=== PATIENT | male | born 2000 | race African-American/Black ===

== ENCOUNTER 2019-04-24 10:47 | Emergency (ER) | payer OTHER ==
[~2019-04-24] VITALS: Ht 175.3 cm; Wt 88.6 kg
[2019-04-24 13:13] LABS: BASO % 0.6 % (0.0-1.0); EOS # 0.1 10^3/uL (0.0-0.50); EOS % 1.4 % (0.0-3.0); HEMOGLOBIN 13.8 g/dl (13.5-17.5); LYMPH # 1.3 10^3/uL (1.5-6.5); LYMPH % 21.4 % (24.0-44.0); MEAN CORPUSCULAR HEMOGLOBIN 29.9 pg (27.0-33.0); MEAN CORPUSCULAR HGB CONC 34.5 g/dl (32.0-36.5); MEAN CORPUSCULAR VOLUME 86.6 fl (80.0-96.0); MONO # 0.6 10^3/uL (0.0-0.8); MONO % 8.8 % (0.0-5.0); NEUTROPHILS # 4.2 10^3/uL (1.8-7.7); NEUTROPHILS % 67.6 % (36.0-66.0); PLATELET COUNT, AUTOMATED 208 10^3/uL (150-450); RED BLOOD COUNT 4.62 10^6/uL (4.30-6.10); WHITE BLOOD COUNT 6.2 10^3/uL (4.0-10.0)
[2019-04-24 13:30] LABS: BLOOD UREA NITROGEN 17 MG/DL (7-18); CALCIUM LEVEL 9.4 MG/DL (8.5-10.1); CARBON DIOXIDE LEVEL 30 MEQ/L (21-32); CHLORIDE LEVEL 107 MEQ/L (98-107); CREATININE FOR GFR 1.21 MG/DL (0.70-1.30); GLUCOSE, FASTING 92 MG/DL (70-100); POTASSIUM SERUM 4.2 MEQ/L (3.5-5.1); SODIUM LEVEL 141 MEQ/L (136-145)
[2019-04-24 16:24] VITALS: BP 118/57
[2019-04-24] MEDS ORDERED: PROC1CRE TOP (16:53)
== END 2019-04-24 17:00 | disposition home or self-care (01) ==
LOC: M ED 10:47
DX: K64.4 Residual hemorrhoidal skin tags (principal); Z72.0 Tobacco use

== ENCOUNTER 2019-05-30 10:32 | Emergency (ER) | payer OTHER ==
[~2019-05-30] VITALS: Ht 175.3 cm; Wt 88.6 kg
[~2019-05-30 10:32] MED LIST: PROC1CRE TOP
--- NOTE | 2019-05-30 12:29 | REP ---
CT HEAD WITHOUT CONTRAST: HISTORY: Injury. There is no intraparenchymal hemorrhage, mass or midline shift. The ventricular system is normal in appearance. There is no extracerebral collection. There is no fracture. The visualized sinuses are clear. IMPRESSION: There is no intracranial lesion. Electronically Signed by Chemo Tracey MD 05/30/2019 12:33 P
[2019-05-30 12:34] VITALS: BP 143/84
== END 2019-05-30 12:49 | disposition home or self-care (01) ==
LOC: M ED 10:32
DX: S06.0X0A Concussion without loss of consciousness, initial encounter (principal); W19.XXXA Unspecified fall, initial encounter; Y92.138 Other place on military base as the place of occurrence of the external cause; Y93.61 Activity, american tackle football; Z87.828 Personal history of other (healed) physical injury and trauma

== ENCOUNTER 2019-07-23 11:00 | Emergency (ER) | payer OTHER ==
[~2019-07-23] VITALS: Ht 175.3 cm; Wt 94.9 kg
[2019-07-23] MEDS ORDERED: CYCLOBENZAPRINE 10 MG TAB PO ONE (12:15)
[2019-07-23] MEDS ORDERED: KETOROLAC 60 MG/2 ML VIAL (J1885) IM ONE (12:15)
[2019-07-23] MEDS ORDERED: ACETAMINOPHEN 325 MG TAB PO ONE (12:15)
[2019-07-23] MEDS ORDERED: LIDOCAINE 5% (LIDODERM) PATCH TD ONE (13:30)
[2019-07-23] MEDS ORDERED: LIDO5DIS41 TD (14:25)
[2019-07-23] MEDS ORDERED: KETO10TAB PO (14:25)
[2019-07-23] MEDS ORDERED: CYCL10TA PO (14:25)
[2019-07-23 14:27] VITALS: BP 143/65
[2019-07-23] MEDS ORDERED: **NOTE PATIENT COMMENT** MISC XX SCH (21:00)
== END 2019-07-23 14:42 | disposition home or self-care (01) ==
LOC: M ED 11:00
DX: S39.012A Strain of muscle, fascia and tendon of lower back, initial encounter (principal); M62.830 Muscle spasm of back; X50.9XXA Other and unspecified overexertion or strenuous movements or postures, initial encounter; Y92.139 Unspecified place military base as the place of occurrence of the external cause; Y93.A6 Activity, grass drills; Y99.1 Military activity
CPT/HCPCS: 96372; 99283; J1885

== ENCOUNTER 2020-12-28 09:12 | Emergency (ER) | payer OTHER ==
[~2020-12-28] VITALS: Ht 175.3 cm; Wt 97.7 kg
[~2020-12-28 09:12] MED LIST changes: +CYCL-707 PO; +KETO10TAB PO; +LIDO5DIS41 TD
[2020-12-28] MEDS ORDERED: BACIOIN5 OP (09:58)
[2020-12-28 10:15] VITALS: BP 146/70
== END 2020-12-28 10:09 | disposition home or self-care (01) ==
LOC: M ED 09:12
DX: S61.213A Laceration without foreign body of left middle finger without damage to nail, initial encounter (principal); W26.0XXA Contact with knife, initial encounter; Y92.9 Unspecified place or not applicable; Y93.9 Activity, unspecified; Y99.9 Unspecified external cause status

== ENCOUNTER 2021-02-24 13:18 | Emergency (ER) | payer OTHER ==
[~2021-02-24] VITALS: Ht 175.3 cm; Wt 95.2 kg
[2021-02-24 13:18] VITALS: BP 117/69
[~2021-02-24 13:18] MED LIST changes: +BACIOIN5 OP
== END 2021-02-24 14:55 | disposition left against medical advice (07) ==
LOC: M ED 13:18
DX: Z53.21 Procedure and treatment not carried out due to patient leaving prior to being seen by health care provider (principal)

== ENCOUNTER 2021-02-25 04:01 | Emergency (ER) | payer OTHER ==
[~2021-02-25] VITALS: Ht 175.3 cm; Wt 79.9 kg
[2021-02-25 04:02] VITALS: BP 126/57
[2021-02-25] MEDS ORDERED: IBUPROFEN 400MG TAB PO ONE (07:00)
[2021-02-25] MEDS ORDERED: ACETAMINOPHEN 500 MG TAB PO ONE (07:00)
[2021-02-25] MEDS ORDERED: ONDANSETRON 4 MG ORAL DISINTEGRATING TAB PO ONE (07:00)
--- NOTE | 2021-02-25 07:48 | REP ---
INDICATION: cough. COMPARISON: No comparison study. TECHNIQUE: Two views.. FINDINGS: The lungs are well inflated and free of infiltrate. The pleural angles are sharp. The heart size is normal. Pulmonary vasculature is not increased. No significant bony abnormality is seen. IMPRESSION: Negative chest x-ray. <Electronically signed by Jass Llanes > 02/25/21 [id number]
== END 2021-02-25 09:53 | disposition home or self-care (01) ==
LOC: M ED 04:01
DX: R50.9 Fever, unspecified (principal); J06.9 Acute upper respiratory infection, unspecified
CPT/HCPCS: 71046; 87804; 99283; Q0162; U0003

== ENCOUNTER 2021-03-28 14:50 | Emergency (ER) | payer OTHER ==
[~2021-03-28] VITALS: Ht 175.3 cm; Wt 93.9 kg
--- NOTE | 2021-03-28 16:00 | REP ---
INDICATION: pain, trauma COMPARISON: None. TECHNIQUE: Internal rotation, external rotation, and Y view. FINDINGS: No acute fracture or dislocation. The acromioclavicular and glenohumeral joints are intact. No periarticular calcifications or degenerative changes are appreciated. Sub acromial space is normal. Subtle increased sclerosis to the glenoid may be related to the given history of prior surgery. Surrounding soft tissues are unremarkable. IMPRESSION: No acute pathology by radiographic evaluation. <Electronically signed by Nathaniel Bazzi > 03/28/21 [id number]
--- NOTE | 2021-03-28 16:01 | REP ---
INDICATION: pain, trauma COMPARISON: None. TECHNIQUE: Two views of the left clavicle. FINDINGS: The sternoclavicular and acromioclavicular joints are intact and normal. The clavicle is normal and without acute fracture or dislocation. No arthritic/degenerative changes. IMPRESSION: Normal left clavicle radiographs. <Electronically signed by Nathaniel Bazzi > 03/28/21 [id number]
[2021-03-28] MEDS ORDERED: ACETAMINOPHEN TAB 650MG DOSE (2X325MG) PO ONE (18:15)
[2021-03-28] MEDS ORDERED: NAPROXEN 250 MG TAB PO ONE (18:15)
[2021-03-28 18:34] VITALS: BP 135/78
== END 2021-03-28 18:35 | disposition home or self-care (01) ==
LOC: M ED 14:50
DX: S43.402A Unspecified sprain of left shoulder joint, initial encounter (principal); V28.0XXA Motorcycle driver injured in noncollision transport accident in nontraffic accident, initial encounter; Y92.89 Other specified places as the place of occurrence of the external cause; Y93.89 Activity, other specified; Y99.8 Other external cause status

== ENCOUNTER 2021-04-13 18:05 | Emergency (ER) | payer OTHER ==
[~2021-04-13] VITALS: Ht 175.3 cm; Wt 91.8 kg
[2021-04-13] MEDS ORDERED: ZOFR4TAB16 PO (18:12)
[2021-04-13] MEDS ORDERED: ONDANSETRON 4MG/2ML VIAL IV ONE (23:45)
[2021-04-13] MEDS ORDERED: NS 1,000 ML IV ONE (23:45)
[2021-04-14 00:23] LABS: BASO % 0.1 % (0.0-1.0); HEMATOCRIT 44.6 % (42.0-52.0); LYMPH # 0.5 10^3/uL (1.5-5.0); LYMPH % 3.8 % (24.0-44.0); MEAN CORPUSCULAR HEMOGLOBIN 28.4 pg (27.0-33.0); MEAN CORPUSCULAR HGB CONC 33.6 g/dl (32.0-36.5); MEAN CORPUSCULAR VOLUME 84.5 fl (80.0-96.0); MONO # 0.5 10^3/uL (0.0-0.8); MONO % 3.5 % (2.0-8.0); NEUTROPHILS # 12.5 10^3/uL (1.5-8.5); NEUTROPHILS % 92.2 % (36.0-66.0); PLATELET COUNT, AUTOMATED 240 10^3/uL (150-450); RED BLOOD COUNT 5.28 10^6/uL (4.30-6.10); WHITE BLOOD COUNT 13.6 10^3/uL (4.0-10.0)
[2021-04-14] MEDS ORDERED: METOCLOPRAMIDE INJ 10MG/2ML VIAL (J2765 PER 1) IV ONE (00:50)
[2021-04-14] MEDS ORDERED: GI COCKTAIL 50ML BTL(HYOSCYAMINE/MAALOX/LIDOCAINE VISCOUS)(1:3:1) PO ONE (00:50)
[2021-04-14] MEDS ORDERED: OMEPRAZOLE 20 MG CAP PO ONE (00:50)
[2021-04-14 00:55] LABS: ALBUMIN 4.9 GM/DL (3.2-5.2); BILIRUBIN,DIRECT 0.2 MG/DL (0.0-0.2); BILIRUBIN,TOTAL 0.7 MG/DL (0.2-1.0); TOTAL PROTEIN 8.4 GM/DL (6.4-8.2)
--- NOTE | 2021-04-14 01:14 | REPVR ---
PROCEDURE INFORMATION: Exam: XR Complete Acute Abdomen Series Including Chest Exam date and time: 04/13/2021 11:59 PM Age: 21 years old Clinical indication: Abdominal pain; Generalized; Additional info: Diffuse abd pain, nausea TECHNIQUE: Imaging protocol: XR complete acute abdomen series, including 2 or more views of the abdomen and a single view chest. COMPARISON: 1. OH Chest, 2 view PA, Lat 02/25/2021 7:25 AM 2. CR Clavicle 03/28/2021 3:36 PM 3. CR Shoulder, complete LEFT 03/28/2021 3:36 PM FINDINGS: Lungs: Unremarkable. No consolidation. No pulmonary edema. Pleural spaces: No pleural effusion. No pneumothorax. Heart/Mediastinum: Unremarkable. No cardiomegaly. Gastrointestinal tract: There is a paucity of gas in the small and large bowel. No dilated loops of bowel are identified. Intraperitoneal space: There are surgical clips in the right upper quadrant of the abdomen. Bones/joints: Unremarkable. Soft tissues: Unremarkable. IMPRESSION: 1. No acute radiographic findings in the chest, abdomen, or pelvis. 2. Paucity of gas in the small and large bowel. Electronically signed by: Tee Damon On 04/14/2021 01:14:02 AM
[2021-04-14] MEDS ORDERED: ISOVUE-370 76% 100ML VIAL As Ordered ONE (01:28)
--- NOTE | 2021-04-14 02:07 | REPVR ---
PROCEDURE INFORMATION: Exam: CT Abdomen And Pelvis With Contrast Exam date and time: 04/14/2021 1:10 AM Age: 21 years old Clinical indication: Elevated white blood cell count, nausea, and vomiting. TECHNIQUE: Imaging protocol: Computed tomography of the abdomen and pelvis with contrast. Radiation optimization: All CT scans at this facility use at least one of these dose optimization techniques: automated exposure control; mA and/or kV adjustment per patient size (includes targeted exams where dose is matched to clinical indication); or iterative reconstruction. Contrast material: ISO; Contrast volume: 100 ml; Contrast route: INTRAVENOUS (IV); COMPARISON: CR Abdomen, Flat Upright, PA CHEST 04/13/2021 11:41 PM FINDINGS: Lungs: The imaged portions of the lung bases are clear. The lungs were not fully imaged. Heart: No cardiomegaly or pericardial effusion. Diaphragm: Intact. Liver: The attenuation of the liver is more than 40 Hounsfield units lower in attenuation compared to the spleen, which is compatible with fatty liver infiltration. No liver lesion is identified. The contour of the liver is smooth. No hepatomegaly is noted. Gallbladder and bile ducts: There has been a cholecystectomy. There is no fluid collection in the gallbladder fossa. No dilation of the bile ducts is noted. No calcified stones are seen in the common bile duct. Pancreas: Normal. No dilation of the main pancreatic duct is noted. Spleen: Normal. No splenomegaly is noted. Adrenal glands: Normal. No adrenal mass is noted. Kidneys and ureters: There is a 3 mm benign-appearing cyst in the upper pole of the left kidney, for which follow-up imaging is not recommended. The kidneys otherwise normal in appearance. No stones are noted in the kidneys or ureters. There is no hydronephrosis or hydroureter. There are no wedge-shaped areas of low attenuation in the kidneys to suggest pyelonephritis. There is no renal abscess or perinephric fluid collection. Stomach and bowel: There is fluid and gas in the stomach. The small bowel is unremarkable. There is diffuse colonic wall thickening. No perforated viscus fistula, or bowel obstruction is noted. Appendix: There is intraluminal high density within the retrocecal appendix, which may represent high density ingested material or appendicoliths. The appendix is not dilated and there is no inflammatory fat stranding or fluid around the appendix to indicate appendicitis. Intraperitoneal space: No free air. No ascites. No abscess. Retroperitoneal space: No fluid collection. No mass. Vasculature: The abdominal aorta is patent, normal in caliber, and there is no dissection. The iliac arteries, common femoral arteries, renal arteries, celiac artery, superior mesenteric artery, and inferior mesenteric artery are patent. Lymph nodes: Normal. No enlarged lymph nodes. Urinary bladder: The partially distended urinary bladder is unremarkable. No stones or masses are seen in the bladder. Reproductive: The prostate gland and seminal vesicles are unremarkable. Bones/joints: There is no acute fracture or dislocation. There are degenerative changes involving the lower lumbar spine. There are bony fragments at the anterior superior corners of the L5 and S1 vertebral bodies, which represent limbus vertebra that are unfused secondary ossification centers that occur secondary to herniation of the nucleus pulposus through the vertebral body endplatex beneath the ring apophysis. Incidental note is made of a well corticated ossicle associated with the left superior articular process of S1, which may represent an ununited ossification center (Tre ossicle) or the sequela of old trauma. Soft tissues: Unremarkable. No hernia. IMPRESSION: 1. Pancolitis. No perforated viscus, fistula, abscess, or bowel obstruction. 2. Fatty liver. COMMENTS: Consistent with the [employer]'s Incidental Findings Committee white paper (J Am Ananda Radiol 2018): Any incidental renal lesion less than 1 cm or classified as too small to characterize, or any incidental cystic renal lesion characterized as simple-appearing, is likely benign. No follow-up imaging is recommended for these lesions per consensus recommendations based on imaging criteria. Electronically signed by: Tee Damon On 04/14/2021 02:07:20 AM
[2021-04-14] MEDS ORDERED: ONDA4TAB6 PO (02:12)
[2021-04-14] MEDS ORDERED: CIPR-249 PO (02:12)
[2021-04-14] MEDS ORDERED: DICY10CA13 PO (02:12)
[2021-04-14] MEDS ORDERED: CIPROFLOXACIN 500MG TABLET PO ONE (02:15)
[2021-04-14 02:30] VITALS: BP 156/88
== END 2021-04-14 02:39 | disposition home or self-care (01) ==
LOC: M ED 18:05
DX: K51.018 Ulcerative (chronic) pancolitis with other complication (principal); K76.0 Fatty (change of) liver, not elsewhere classified; R11.2 Nausea with vomiting, unspecified; F17.200 Nicotine dependence, unspecified, uncomplicated
CPT/HCPCS: 74021; 74177; 80047; 80076; 81001; 83690; 85025; 96361; 96374; 96375; 99284; J2405; J2765; Q9967

== ENCOUNTER 2021-04-15 14:21 | Emergency (ER) | payer OTHER ==
[~2021-04-15] VITALS: Ht 175.3 cm; Wt 90.9 kg
[~2021-04-15 14:21] MED LIST changes: +CIPR-249 PO; +DICY10CA13 PO; +ONDA4TAB6 PO; +ZOFR4TAB16 PO
[2021-04-15] MEDS ORDERED: METOCLOPRAMIDE INJ 10MG/2ML VIAL (J2765 PER 1) IV ONE (16:35)
[2021-04-15 16:52] LABS: BASO % 0.4 % (0.0-1.0); EOS % 0.1 % (0.0-3.0); HEMATOCRIT 46.2 % (42.0-52.0); HEMOGLOBIN 15.6 g/dl (13.5-17.5); LYMPH % 12.1 % (24.0-44.0); MEAN CORPUSCULAR HEMOGLOBIN 28.4 pg (27.0-33.0); MEAN CORPUSCULAR HGB CONC 33.8 g/dl (32.0-36.5); MEAN CORPUSCULAR VOLUME 84.2 fl (80.0-96.0); MONO # 0.6 10^3/uL (0.0-0.8); NEUTROPHILS # 6.2 10^3/uL (1.5-8.5); NEUTROPHILS % 79.9 % (36.0-66.0); PLATELET COUNT, AUTOMATED 271 10^3/uL (150-450); RED BLOOD COUNT 5.49 10^6/uL (4.30-6.10); WHITE BLOOD COUNT 7.8 10^3/uL (4.0-10.0)
[2021-04-15 17:10] LABS: ALBUMIN 4.7 GM/DL (3.2-5.2); ALT/SGPT 25 U/L (12-78); BILIRUBIN,DIRECT 0.2 MG/DL (0.0-0.2); BILIRUBIN,TOTAL 0.8 MG/DL (0.2-1.0); BLOOD UREA NITROGEN 15 MG/DL (7-18); CALCIUM LEVEL 9.6 MG/DL (8.5-10.1); CARBON DIOXIDE LEVEL 27 MEQ/L (21-32); CHLORIDE LEVEL 103 MEQ/L (98-107); CREATININE FOR GFR 1.13 MG/DL (0.70-1.30); GLOMERULAR FILTRATION RATE > 60.0 (>60); GLUCOSE, FASTING 97 MG/DL (70-100); LIPASE 88 U/L (73-393); POTASSIUM SERUM 3.8 MEQ/L (3.5-5.1); SODIUM LEVEL 136 MEQ/L (136-145); TOTAL PROTEIN 8.4 GM/DL (6.4-8.2)
[2021-04-15] MEDS ORDERED: PROMETHAZINE INJ 25 MG/ML VIAL (J2550) IV ONE (17:30)
[2021-04-15 18:28] VITALS: BP 120/81
[2021-04-15 19:06] LABS: AMPHETAMINES LEVEL URINE NEGATIVE (NEGATIVE); BARBITURATES URINE NEGATIVE (NEGATIVE); BENZODIAZEPINES URINE NEGATIVE (NEGATIVE); CANNABINOIDS URINE POSITIVE (NEGATIVE); COCAINE METABOLITE URINE NEGATIVE (NEGATIVE); METHADONE URINE NEGATIVE (NEGATIVE); OPIATES URINE NEGATIVE (NEGATIVE); PHENCYCLIDINE URINE NEGATIVE (NEGATIVE)
== END 2021-04-15 20:34 | disposition home or self-care (01) ==
LOC: M ED 14:21 → EDBD 14:21 → M ED 20:34
DX: R11.2 Nausea with vomiting, unspecified (principal); F17.200 Nicotine dependence, unspecified, uncomplicated; F12.10 Cannabis abuse, uncomplicated
CPT/HCPCS: 80048; 80076; 80307; 81001; 83690; 85025; 96374; 96375; 99284; J2765

== ENCOUNTER 2021-05-13 10:58 | Emergency (ER) | payer OTHER ==
[~2021-05-13] VITALS: Ht 175.3 cm; Wt 88.6 kg
[2021-05-13] MEDS ORDERED: COMP1SUP2 PR (11:27)
[2021-05-13] MEDS ORDERED: AMOX875T2 PO (11:27)
[2021-05-13] MEDS ORDERED: HALOPERIDOL 5MG/ML VIAL (J1630 PER 1) IV ONE (11:30)
[2021-05-13] MEDS ORDERED: NS 1,000 ML IV ONE ×2 (11:30→12:55)
[2021-05-13 12:21] LABS: BASO % 0.3 % (0.0-1.0); HEMATOCRIT 44.5 % (42.0-52.0); HEMOGLOBIN 15.4 g/dl (13.5-17.5); LYMPH # 1.1 10^3/uL (1.5-5.0); LYMPH % 8.7 % (24.0-44.0); MEAN CORPUSCULAR HEMOGLOBIN 28.2 pg (27.0-33.0); MEAN CORPUSCULAR HGB CONC 34.6 g/dl (32.0-36.5); MEAN CORPUSCULAR VOLUME 81.5 fl (80.0-96.0); MONO # 0.9 10^3/uL (0.0-0.8); MONO % 6.6 % (2.0-8.0); PLATELET COUNT, AUTOMATED 267 10^3/uL (150-450); RED BLOOD COUNT 5.46 10^6/uL (4.30-6.10); WHITE BLOOD COUNT 13.1 10^3/uL (4.0-10.0)
[2021-05-13 12:52] LABS: AMPHETAMINES LEVEL URINE NEGATIVE (NEGATIVE); BARBITURATES URINE NEGATIVE (NEGATIVE); BENZODIAZEPINES URINE NEGATIVE (NEGATIVE); CANNABINOIDS URINE POSITIVE (NEGATIVE); COCAINE METABOLITE URINE NEGATIVE (NEGATIVE); METHADONE URINE NEGATIVE (NEGATIVE); OPIATES URINE NEGATIVE (NEGATIVE); PHENCYCLIDINE URINE NEGATIVE (NEGATIVE)
--- NOTE | 2021-05-13 12:53 | REP ---
INDICATION: intract hiccups, nausea, vomiting, 3 weeks. COMPARISON: None. TECHNIQUE: Helical scanning is acquired. 5 mm axial images were reformatted. Coronal MPR images were generated. FINDINGS: Bone window settings demonstrate an intact bony calvarium. There is no evidence of skull fracture or incidental bony calvarial lesion. The visualized paranasal sinuses appear clear. No intraorbital abnormality is seen. On soft tissue window setting images; the lateral, third, and fourth ventricles are normal in size and position. Pham-white differentiation pattern is normal above and below the tentorium. There are is no evidence of intracranial hemorrhage. No mass, edema, infarction, or midline shift is seen. No extra-axial fluid collection is appreciated. IMPRESSION: Negative noncontrast head CT. <Electronically signed by Jass Llanes > 05/13/21 [id number]
[2021-05-13 12:54] LABS: ALT/SGPT 31 U/L (12-78); BILIRUBIN,DIRECT 0.3 MG/DL (0.0-0.2); BILIRUBIN,TOTAL 1.2 MG/DL (0.2-1.0); BLOOD UREA NITROGEN 20 MG/DL (7-18); CALCIUM LEVEL 9.8 MG/DL (8.5-10.1); CARBON DIOXIDE LEVEL 22 MEQ/L (21-32); CHLORIDE LEVEL 100 MEQ/L (98-107); CREATININE FOR GFR 1.22 MG/DL (0.70-1.30); GLOMERULAR FILTRATION RATE > 60.0 (>60); GLUCOSE, FASTING 106 MG/DL (70-100); LIPASE 118 U/L (73-393); POTASSIUM SERUM 3.3 MEQ/L (3.5-5.1); SODIUM LEVEL 136 MEQ/L (136-145); TOTAL PROTEIN 8.7 GM/DL (6.4-8.2)
[2021-05-13 12:57] LABS: ERYTHROCYTE SEDIMENTATION RATE 8 mm/hr (0-15)
[2021-05-13] MEDS ORDERED: ISOVUE-370 76% 100ML VIAL As Ordered ONE (12:58)
--- NOTE | 2021-05-13 13:35 | REP ---
INDICATION: diffuse abd pain, n/vomiting, intract hiccups COMPARISON: 04/14/2021. TECHNIQUE: CT Scan of the abdomen and pelvis was performed with intravenous administration of 100 cc of Isovue 370, without oral contrast. Sagittal and coronal reconstruction images are performed. FINDINGS: Lung bases: Unremarkable. Liver: Normal Gallbladder: Prior cholecystectomy. Spleen: Normal. Adrenals: Normal. Pancreas: Normal. Kidneys: A 7 mm hypodensity in the upper pole the left kidney probably represents a cyst. Small and large bowel: Unremarkable. Free fluid: None. Abdominal aorta: No aneurysm or dissection. Adenopathy: None. Appendix: Not inflamed. Osseous structures: Unremarkable. Pelvis: No mass. IMPRESSION: Negative CT abdomen and pelvis. <Electronically signed by Enrique Pham > 05/13/21 [id number]
[2021-05-13 14:19] VITALS: BP 127/85
== END 2021-05-13 14:22 | disposition home or self-care (01) ==
LOC: M ED 10:58 → EDBD 10:58 → M ED 14:22
DX: F12.188 Cannabis abuse with other cannabis-induced disorder (principal); R11.2 Nausea with vomiting, unspecified; T40.7X5A Adverse effect of cannabis (derivatives), initial encounter
CPT/HCPCS: 36415; 70450; 74177; 80048; 80076; 80307; 81001; 83690; 85025; 85652; 86140; 96361; 96374; 99284; J1630; Q9967

== ENCOUNTER → 2021-05-21 | Outpatient (CLI) | payer OTHER ==
[~2021-05-21] MED LIST changes: +AMOX875T2 PO; +COMP1SUP2 PR; +PROM12.56 PO
== END ==
LOC: M LABSMTC 14:04
PROVIDERS: ATTEND Anesthesiology
DX: Z01.812 Encounter for preprocedural laboratory examination (principal); Z11.52 Encounter for screening for COVID-19

== ENCOUNTER 2021-05-24 12:29 | Day surgery (SDC) | payer OTHER ==
[~2021-05-24] VITALS: Ht 175.3 cm; Wt 78.5 kg
[~2021-05-24 12:29] MED LIST changes: +NS 1,000 ML IV ONE
[2021-05-24] MEDS ORDERED: propofoL 200 MG/20 ML VIAL As Ordered ONE ×2 (13:12→14:08)
[2021-05-24] MEDS ORDERED: LIDOCAINE 2% 100MG/5ML SDV (FOR ANES.) As Ordered ONE (13:12)
[2021-05-24] MEDS ORDERED: fentaNYL 100 MCG/2 ML INJECTION (J3010) As Ordered ONE (13:14)
--- NOTE | 2021-05-24 13:56 | ROOR ---
Patient Name: Davon Villalba Procedure Date: 05/24/2021 1:37 PM Date of : 2000 Age: 21 Room: [facility] Gender: Male Note Status: Finalized Procedure: Upper Endoscopy + Biopsies Indications: Nausea with vomiting, Weight loss Providers: Erickson Au MD Referring MD: MARILY URBANO MD Requesting Provider: Medicines: Monitored Anesthesia Care Complications: No immediate complications. Procedure: Pre-Anesthesia Assessment: - The heart rate, respiratory rate, oxygen saturations, blood pressure, adequacy of pulmonary ventilation, and response to care were monitored throughout the procedure. The Endoscope was introduced through the mouth, and advanced to the second part of duodenum. The upper GI endoscopy was accomplished without difficulty. The patient tolerated the procedure well. Findings: The Z-line was regular and was found 40 cm from the incisors. Multiple biopsies were obtained with cold forceps for evaluation to rule out Christopher's Esophagus randomly at the gastroesophageal junction. Diffuse moderately erythematous mucosa without bleeding was found on the greater curvature of the stomach. Biopsies were taken with a cold forceps for Helicobacter pylori testing. The exam of the duodenum was otherwise normal. Biopsies for histology were taken with a cold forceps in the first portion of the duodenum for evaluation of celiac disease. The exam was otherwise without abnormality. Impression: - Z-line regular, 40 cm from the incisors. - Erythematous mucosa in the greater curvature. Biopsied. - The examination was otherwise normal. - Multiple biopsies were obtained at the gastroesophageal junction. - Biopsies were taken with a cold forceps for evaluation of celiac disease. - The examination was otherwise normal. Recommendation: - Patient has a contact number available for emergencies. The signs and symptoms of potential delayed complications were discussed with the patient. Return to normal activities tomorrow. Written discharge instructions were provided to the patient. - High fiber diet. - Discharge patient to home. - Follow an antireflux regimen. - Continue present medications. - Await pathology results. - Telephone GI clinic for pathology results in 1 week. - Return to referring physician. - The findings and recommendations were discussed with the patient's family. Procedure Code(s): --- Professional --- 45521, Esophagogastroduodenoscopy, flexible, transoral; with biopsy, single or multiple Diagnosis Code(s): --- Professional --- K31.89, Other diseases of stomach and duodenum R11.2, Nausea with vomiting, unspecified R63.4, Abnormal weight loss CPT copyright 2019 [employer]. All rights reserved. The codes documented in this report are preliminary and upon dry color tester review may be revised to meet current compliance requirements. Erickson Au MD Erickson Au MD 05/24/2021 1:55:23 PM Electronically signed by Erickson Au MD Number of Addenda: 0 Note Initiated On: 05/24/2021 1:37 PM Estimated Blood Loss: Estimated blood loss: none.
--- NOTE | 2021-05-24 14:13 | ROOR ---
Patient Name: Davon Villalba Procedure Date: 05/24/2021 1:38 PM Date of : 2000 Age: 21 Room: OP02 Gender: Male Note Status: Finalized Procedure: Total Colonoscopy to Cecum + ileoscopy + Bx Indications: Change in bowel habits, Clinically significant diarrhea of unexplained origin Providers: Erickson Au MD Referring MD: MARILY URBANO MD Requesting Provider: Medicines: Monitored Anesthesia Care Complications: No immediate complications. Procedure: Pre-Anesthesia Assessment: - The heart rate, respiratory rate, oxygen saturations, blood pressure, adequacy of pulmonary ventilation, and response to care were monitored throughout the procedure. The Colonoscope was introduced through the anus and advanced to the terminal ileum, with identification of the appendiceal orifice and IC valve. The colonoscopy was performed without difficulty. The patient tolerated the procedure well. The quality of the bowel preparation was excellent. Findings: The perianal and digital rectal examinations were normal. Non-bleeding internal hemorrhoids were found during retroflexion. The hemorrhoids were small and Grade I (internal hemorrhoids that do not prolapse). No other significant abnormalities were identified in a careful examination of the remainder of the colon. The terminal ileum appeared normal. Background biopsies were taken for histology with a cold forceps from the ascending colon, transverse colon and descending colon. These biopsy specimens were sent to Pathology. The exam was otherwise without abnormality on direct and retroflexion views. Impression: - Non-bleeding internal hemorrhoids. - The examined portion of the ileum was normal. - The examination was otherwise normal on direct and retroflexion views. - Background biopsies were taken from the ascending colon, transverse colon and descending colon. - The exam was otherwise normal to the cecum. Recommendation: - Patient has a contact number available for emergencies. The signs and symptoms of potential delayed complications were discussed with the patient. Return to normal activities tomorrow. Written discharge instructions were provided to the patient. - High fiber diet. - Discharge patient to home. - Continue present medications. - Await pathology results. - Telephone GI clinic for pathology results in 1 week. - Repeat colonoscopy at age 49 for screening purposes. - Return to referring physician. - The findings and recommendations were discussed with the patient's family. Procedure Code(s): --- Professional --- 52526, Colonoscopy, flexible; with biopsy, single or multiple Diagnosis Code(s): --- Professional --- K64.0, First degree hemorrhoids R19.4, Change in bowel habit R19.7, Diarrhea, unspecified CPT copyright 2019 [employer]. All rights reserved. The codes documented in this report are preliminary and upon underwriting service representative review may be revised to meet current compliance requirements. Erickson Au MD Erickson Au MD 05/24/2021 2:12:47 PM Electronically signed by Erickson Au MD Number of Addenda: 0 Note Initiated On: 05/24/2021 1:38 PM Estimated Blood Loss: Estimated blood loss: none.
[2021-05-24 14:41] VITALS: BP 126/75
== END 2021-05-24 14:43 | disposition home or self-care (01) ==
LOC: M OPP 12:29
PROVIDERS: ATTEND Internal Medicine Gastroenterology
DX: K64.0 First degree hemorrhoids (principal); R19.4 Change in bowel habit; R19.7 Diarrhea, unspecified; K31.89 Other diseases of stomach and duodenum; R11.2 Nausea with vomiting, unspecified; Z79.899 Other long term (current) drug therapy; Z87.891 Personal history of nicotine dependence
CPT/HCPCS: 43239; 45380; 88305; J3010